=== PATIENT | male | born 1960 | race Native Hawaiian/Other Pacific Islander ===

== ENCOUNTER 2018-04-29 08:16 | Emergency (ER) | payer OTHER ==
[~2018-04-29] VITALS: Ht 177.8 cm; Wt 74.8 kg
[2018-04-29 08:25] VITALS: TEMP 98
[2018-04-29 08:50] LABS: PLATELET COUNT 164 K/uL (142-355)
[2018-04-29 09:08] LABS: POTASSIUM 3.7 mmol/L (3.6-5.2)
[2018-04-29 09:19] LABS: PARTIAL THROMBOPLASTIN TIME 25.3 SECONDS (24.5-33.6)
[2018-04-29 12:00] VITALS: BP 99/79
== END 2018-04-29 12:05 | disposition short-term general hospital (02) ==
LOC: ED 08:16
DX: I24.9 Acute ischemic heart disease, unspecified (principal); I21.4 Non-ST elevation (NSTEMI) myocardial infarction; I50.9 Heart failure, unspecified; I48.91 Unspecified atrial fibrillation; I48.92 Unspecified atrial flutter; R00.0 Tachycardia, unspecified; I45.81 Long QT syndrome
CPT/HCPCS: 36415; 36600; 80053; 82550; 82805; 83880; 84484; 85027; 85379; 85610; 85730; 93005; 96372; 99284; J1650

== ENCOUNTER 2018-04-29 12:17 | Outpatient (CLI) | payer OTHER | END 2018-04-29 13:35 | disposition short-term general hospital (02) | LOC: AMB 12:17 | DX: I24.9 Acute ischemic heart disease, unspecified (principal); I21.4 Non-ST elevation (NSTEMI) myocardial infarction; I50.9 Heart failure, unspecified; I48.91 Unspecified atrial fibrillation; I48.92 Unspecified atrial flutter; R00.0 Tachycardia, unspecified; I45.81 Long QT syndrome | CPT/HCPCS: A0425; A0427 ==